=== PATIENT | female | born 1980 | race American Indian/Alaskan Native ===

== ENCOUNTER 2018-08-05 13:39 | Emergency (ER) | payer OTHER ==
[2018-08-05] MEDS ORDERED: NORCO 5/325 PO ONE (13:52)
[2018-08-05] MEDS ORDERED: BOOSTRIX IM ONE (13:52)
[2018-08-05] MEDS ORDERED: TRIMOX PO ONE (13:53)
--- NOTE | 2018-08-05 13:53 | Emergency Department Report ---
ED Rash HPI - HPI Stated Complaint: DOG BITE/R THIGH PAIN Time Seen by Provider: 08/05/18 13:52 Duration: 1 Day Location: Lower Extremities Suspected Cause: Animal Rash Symptoms: No Itching, No Facial Swelling, No Tongue/Oral Swelling, No Breathing Difficulties, No Choking Sensation, No Wheezing/Dyspnea, No Peeling, No Blistering, No Fever, No Lightheaded, No Malaise, No Myalgias Severity: mild Other History: 37 yo comes to ER sp dog bite to the r thigh. superficial but painful. ? tdap. dog utd on shots. pt ambulatory and non toxic. ED Review of Systems ROS: Stated complaint: DOG BITE/R THIGH PAIN Other details as noted in HPI Comment: All other systems reviewed and negative ED Past Medical Hx - Past Medical History Previous Medical History?: No - Surgical History Past Surgical History?: No - Family History Family history: no significant - Medications Home Medications: Home Medications Medication Instructions Recorded Confirmed Last Taken Type Amoxicillin [Trimox CAP] 500 mg PO BID #20 capsule 08/05/18 Unknown Rx Ibuprofen [Motrin] 800 mg PO Q8HR PRN #50 tablet 08/05/18 Unknown Rx Rash Exam - Exam General: Vital signs noted. No distress. Alert and acting appropriately. superficial dog bite right thigh wound clean without drainage neurovasc intact HEENT: No Periorbital Edema, No Conjuctival Injection Lungs: Yes Good Air Exchange, No Wheezes Heart: Yes Regular Skin: Yes Other Other: Positive: Abdomen Normal, Neurologic Normal, Musculoskeletal Normal ED Medical Decision Making - Medical Decision Making superficial dog bite no sign immed infection dog utd on shots wound clean tdap dc home on antibiotics and dc plan of care. Vital Signs 08/05/18 13:50 Temperature 97.9 F Pulse Rate 71 Respiratory 16 Rate Blood Pressure 100/67 [Right] O2 Sat by Pulse 98 Oximetry - Differential Diagnosis dog bite Critical care attestation.: If time is entered above; I have spent that time in minutes in the direct care of this critically ill patient, excluding procedure time. ED Disposition Clinical Impression: Dog bite Disposition: DC-01 TO HOME OR SELFCARE Is pt being admited?: No Does the pt Need Aspirin: No Condition: Stable Instructions: Animal Bite (ED) Additional Instructions: motrin or tylenol for pain keep clean with soap and water amox until gone tdap given today Prescriptions: Ibuprofen [Motrin] 800 mg PO Q8HR PRN #50 tablet PRN Reason: Pain , Severe (7-10) Amoxicillin [Trimox CAP] 500 mg PO BID #20 capsule Referrals: [facility] [Outside] - 3-5 Days Time of Disposition: 13:53
[2018-08-05 13:54] VITALS: BP 100/67
== END 2018-08-05 14:45 | disposition home or self-care (01) ==
LOC: ED 13:39
DX: S71.151A Open bite, right thigh, initial encounter (principal); W54.0XXA Bitten by dog, initial encounter; Y93.89 Activity, other specified; Y92.89 Other specified places as the place of occurrence of the external cause; Y99.8 Other external cause status
CPT/HCPCS: 90471; 90715